=== PATIENT | male | born 1945 | race Caucasian/White ===

== ENCOUNTER → 2025-04-01 12:03 | Outpatient (CLI) | payer MEDICARE, OTHER, SELFPAY ==
--- NOTE | 2025-04-01 12:06 | DI.RAD.S_ITS ---
PROCEDURE: ORTHO-XR KNEE WB LEFT INDICATIONS: Left Knee Pain - Previous TKA TECHNIQUE: 4 view(s) of the knee acquired. [facility] [place], XR KNEE ARTHRITIC SERIES BI, 04/09/2022, 8:42. FINDINGS: Bones: Patient is status post knee joint arthroplasty. Hardware components are in expected positions. No evidence of hardware loosening or failure. No acute periprosthetic fracture. Soft tissues: No significant joint effusion. IMPRESSION: Prior left total knee arthroplasty with anatomic left knee alignment. No evidence of hardware loosening or failure. No acute fracture or dislocation. No significant joint effusion. Dictated by: Jose Maria Price M.D. on 04/01/2025 at 14:43 Approved by: Jose Maria Price M.D. on 04/01/2025 at 14:44
== END ==
PROVIDERS: PCP Internal Medicine; Referring Provider Orthopaedic Surgery Adult Reconstructive Orthopaedic Surgery; Visit Provider Orthopaedic Surgery Adult Reconstructive Orthopaedic Surgery
DX: Z09 Encounter for follow-up examination after completed treatment for conditions other than malignant neoplasm (principal); Z96.652 Presence of left artificial knee joint
CPT/HCPCS: 73564